=== PATIENT | male | born 1965 | race Caucasian/White ===

== ENCOUNTER 2020-10-11 09:44 | Emergency (ER) | payer BC, OTHER ==
[2020-10-11] MEDS ORDERED: Sodium Chloride 0.9% 2.5 ML Syringe FLUSH PRN (10:01)
[2020-10-11] MEDS ORDERED: Sodium Chloride 0.9% 10 ML Syringe FLUSH PRN (10:01)
--- NOTE | 2020-10-11 10:20 | PCM.SN.2 ---
- Free Text/Narrative Note: EKG done at 9:56 AM sinus rhythm heart rate 93 OH interval 151 QT duration 462. [place] -29. ST elevation in the inferior leads. I see no prior readily available for comparison. Impression this does not show any obvious acute injury or arrhythmia.
--- NOTE | 2020-10-11 10:22 | EDM.PDOC ---
ED HPI GENERAL MEDICAL PROBLEM - General Chief Complaint: Chest Pain Stated Complaint: CHEST PAIN Time Seen by Provider: 10/11/20 10:00 Source of Information: Reports: Patient History Limitations: Reports: No Limitations - History of Present Illness INITIAL COMMENTS - FREE TEXT/NARRATIVE: HISTORY AND PHYSICAL: History of present illness: The patient is a 55-year-old male with a history of hypertension who presents to the emergency room with complaints of right-sided chest pain that extends to his superior and posterior shoulder area for the last 4 days. The patient reports that he normally walks 2 to 3 miles a day but wanted to put a weightlifting routine back into his exercise regimen. He started 1.5 weeks ago lifting 15 pound weights and after 4 days noticed he started having some right shoulder pain. He stopped lifting weights and after about 2 days the pain subsided and he started lifting weights again. After about 2 days of lifting weights he started having the shoulder pain stopped again and has had the right chest/shoulder pain for the last 4 days. He states that when he lay supine he has no pain. Upon lying on his right side he has extreme pain. When he lays on his left side he has mild to no pain. He states upon waking up he has a moderate amount of pain every morning. He has never experienced anything like this previously. The patient has no associated symptoms such as nausea, vomiting, diaphoresis, shortness of breath, or dizziness. Patient denies any fever, chills, headache, change in vision, syncope or near syncope. Denies any cough. Denies any abdominal pain, diarrhea, constipation or dysuria. Has not noted any blood in urine or stool. Patient has been eating and drinking appropriately. In the emergency room the patient is hemodynamically stable with a heart rate of 93. He is slightly hypertensive with a blood pressure of 143/101 patient the patient states he is currently taking hydrochlorothiazide 25 mg daily and he has taken his morning dose. The patient is afebrile with a temperature of 97.2. He has a respiratory rate of 18 and SPO2 of 98%. The patient does state he is a little anxious due to the chest pain. Review of systems: As per history of present illness and below otherwise all systems reviewed and negative. Past medical history: As per history of present illness and as reviewed below otherwise noncontributory. Surgical history: As per history of present illness and as reviewed below otherwise noncontributory. Social history: See social history for further information Family history: As per history of present illness and as reviewed below otherwise noncontributory. Physical exam: General: Well developed and well nourished. Alert and orientated x 3. Nontoxic in appearance and in no acute distress. Vital signs are stable and have been reviewed by me. Nursing notes were reviewed. HEENT: Atraumatic, normocephalic, pupils equal and reactive bilaterally, negative for conjunctival pallor or scleral icterus, mucous membranes moist, TMs normal bilaterally, throat clear, neck supple, nontender, trachea midline. No drooling or trismus noted. No meningeal signs. No hot potato voice noted. Lungs: Clear to auscultation bilaterally. No wheezes, rales, or rhonchi. Chest nontender. Normal work of breathing, no accessory muscles used. Heart: S1S2, regular rate and rhythm without overt murmur, gallops, or rubs. No JVD. No peripheral edema Abdomen: Soft, nondistended, nontender. Normoactive bowel sounds. Negative for masses or costovertebral tenderness. Skin: Intact, warm, dry. No lesions or rashes noted. Hematologic: No petechiae or purpra. Mucosa appropriate color and normal nail bed color and refill. Extremities: Right arm active ROM produced mild pain superior on acromion process. With passive adduction mild pain posterior shoulder. Color and sensation intact. Moves all other extremities per self without difficulty or deficits, negative for cords or calf pain. Neurovascular unremarkable. Neuro: Awake, alert, oriented. Cranial nerves II through XII unremarkable. Cerebellum unremarkable. Motor and sensory unremarkable throughout. Exam nonfocal. Psychiatric: Mood and affect are appropriate. Normal thought process. Answering questions appropriately. Notes: *This patient was seen and evaluated during the 2019 SARS-CoV-2 novel coronavirus pandemic period. Community viral transmission is ongoing at time of this encounter and the emergency department is operating under pandemic response procedures. After discussion and examination the patient is agreeable to blood work, EKG, chest x-ray. The patient's EKG radiates and did not show any acute changes. Chest x-ray radiology reading: IMPRESSION: Unremarkable chest. CBC unremarkable. CMP: Sodium 134, potassium 3.1, chloride 96, carbon dioxide 37.7, ALT 70. I have treated his potassium 3.1 with potassium chloride 40 mEq p.o. The patient's exam is suggestive of muscular skeletal from new introduction of weight lifting. Patient's work-up is also negative for cardiac. Patient's blood pressure was elevated upon arrival to the emergency department and has come down to 120/91. I discussed at length the need for the patient to take his blood pressure daily for 2 weeks and then report to his primary care for possible medication adjustment. The patient presently is on hydrochlorothiazide and potassium. I will prescribe the patient Norflex 100 mg twice daily for 7 days and instructed on taking ibuprofen 800 mg every 8 hours for 4 days. If he continues to have pain he will follow-up with a primary provider at the 2-week timeframe. He will refrain from working out until he is pain-free and when he does resume his workouts he was educated on the need to start with a lesser weight such as 5 pounds in increase his repetitions as opposed to creasing the weight. The patient was placed on the new primary care list for call back. I have talked with the patient about today's findings, in addition to providing specific details for plan of care. Reassessment at the time of disposition demonstrates that the patient is in no acute distress. The patient is stable for discharge, counseling was provided and we discussed in great detail signs and symptoms that would prompt them to return to the Emergency Department. Medication, follow up and supportive care measures were reviewed and discussed. Voices understanding and is agreeable to plan of care. Denies any further questions or concerns at this time. Diagnostics: CBC, CMP, troponin, CXR, EKG Therapeutics: Toradol 30 mg IV potassium chloride 40 mEq Prescription: Norflex 100 mg twice daily for 7 days Impression: Right shoulder pain Plan: 1. You were evaluated today on an emergent basis. Your plaints of right-sided chest, shoulder and upper back pain were evaluated with a chest x-ray which was normal, blood work which showed your potassium low which I have treated with 40 mEq of potassium. Initially her blood pressure was elevated, however, it has returned to a more normal reading. Your bottom number for your diastolic remained at 90 which for your age should be 80 or below. You need to continue your hydrochlorothiazide and take your blood pressure daily for 2 weeks and record your blood pressure and heart rate at different times during the day. To take your blood pressure appropriately you must be sitting with your feet flat on the floor for at least 10 to 15 minutes. No crossing of your legs. Your arm should be resting when you are taking the blood pressure. Please bring the 2 weeks readings to you primary care provider. Due to your low potassium you need to add green leafy vegetables to your diet. Your left shoulder pain is most likely a muscular skeletal issue. I have prescribed Norflex for you to take twice a day for 7 days and for you to take an [id number] Motrin 800 mg every 8 hours for 4 days. At the time of your follow-up with your primary care provider you can talk about whether you need further imaging of your right shoulder. If you are going to continue to lift weights wait until you are pain- free and then start with 5 pound weights increasing the number slowly. Remember to stretch after each exercise. 2. You can alternate Tylenol and ibuprofen as needed for pain and fever management. 3. We encourage you to follow up with your primary care provider and/or recommen ded specialist in the next few days for re-evaluation and further care/management. 4. If your symptoms should worsen, new symptoms develop or any of the signs and symptoms we discussed should arise please return to the emergency room or call 911 (if needed). Definitive disposition and diagnosis as appropriate pending reevaluation and review of above. Right Chest Pain Score (Numeric/FACES): 4 - Related Data Allergies Allergy/AdvReac Type Severity Reaction Status Date / Time No Known Allergies Allergy Verified 10/11/20 10:17 Home Meds: Home Meds Orphenadrine [Norflex] 100 mg PO BID PRN 7 Days #14 tab 10/11/20 [Rx] hydroCHLOROthiazide [Hydrochlorothiazide] 25 mg PO DAILY 10/11/20 [History] Past Medical History Cardiovascular History: Reports: Hypertension Oncologic (Cancer) History: Reports: Other (See Below) Other Oncologic History: testicular cancer 2010 - Infectious Disease History Infectious Disease History: Reports: None - Past Surgical History Other Musculoskeletal Surgeries/Procedures:: neck surgery Social & Family History - Family History Family Medical History: No Pertinent Family History - Caffeine Use Caffeine Use: Reports: None - Recreational Drug Use Recreational Drug Use: No ED ROS GENERAL - Review of Systems Review Of Systems: Comprehensive ROS is negative, except as noted in HPI. ED EXAM, GENERAL - Physical Exam Exam: See Below (See dictation) Course - Vital Signs Last Recorded V/S: Last Vital Signs Temp 97.2 F 10/11/20 09:45 Pulse 87 10/11/20 11:30 Resp 16 10/11/20 11:30 BP 138/93 H 10/11/20 11:30 Pulse Ox 95 10/11/20 11:30 - Orders/Labs/Meds Orders: Active Orders 24 hr Category Date Time Status Saline Lock Insert [OM.PC] Stat Oth 10/11/20 10:01 Ordered Labs: Laboratory Tests 10/11/20 10/11/20 Range/Units 10:25 10:25 WBC 6.07 (4.0-11.0) K/uL RBC 5.69 (4.50-5.90) M/uL Hgb 17.4 H (13.0-17.0) g/dL Hct 49.4 (38.0-50.0) % MCV 86.8 (80.0-98.0) fL MCH 30.6 (27.0-32.0) pg MCHC 35.2 (31.0-37.0) g/dL RDW Std Deviation 41.1 (28.0-62.0) fl RDW Coeff of Yimi 13 (11.0-15.0) % Plt Count 197 (150-400) K/uL MPV 10.30 (7.40-12.00) fL Neut % (Auto) 64.7 (48.0-80.0) % Lymph % (Auto) 18.9 (16.0-40.0) % [place] % (Auto) 14.8 (0.0-15.0) % Eos % (Auto) 1.3 (0.0-7.0) % Baso % (Auto) 0.3 (0.0-1.5) % Neut # (Auto) 3.9 (1.4-5.7) K/uL Lymph # (Auto) 1.2 (0.6-2.4) K/uL [place] # (Auto) 0.9 H (0.0-0.8) K/uL Eos # (Auto) 0.1 (0.0-0.7) K/uL Baso # (Auto) 0.0 (0.0-0.1) K/uL Nucleated RBC % 0.0 /100WBC Nucleated RBCs # 0 K/uL Sodium 134 L (136-148) mmol/L Potassium 3.1 L (3.5-5.1) mmol/L Chloride 96 L (98-107) mmol/L Carbon Dioxide 33.7 H (21.0-32.0) mmol/L BUN 10 (7.0-18.0) mg/dL Creatinine 1.3 (0.8-1.3) mg/dL Est Cr Clr Drug Dosing 59.32 mL/min Estimated GFR (MDRD) 57.1 ml/min Glucose 118 H (74-106) mg/dL Calcium 8.6 (8.5-10.1) mg/dL Total Bilirubin 0.8 (0.2-1.0) mg/dL AST 32 (15-37) IU/L ALT 70 H (14-63) IU/L Alkaline Phosphatase 117 H (46-116) U/L Troponin I < 0.050 (0.000-0.056) ng/mL Total Protein 8.0 (6.4-8.2) g/dL Albumin 3.7 (3.4-5.0) g/dL Globulin 4.3 H (2.6-4.0) g/dL Albumin/Globulin Ratio 0.9 (0.9-1.6) Meds: Medications Discontinued Medications Generic Name Dose Route Start Last Admin Trade Name Freq PRN Reason Stop Dose Admin Ketorolac Tromethamine 30 mg 10/11/20 12:07 10/11/20 12:23 Ketorolac 30 Mg/Ml Sdv IVPUSH 10/11/20 12:08 30 mg ONETIME ONE Administration Potassium Chloride 40 meq 10/11/20 12:06 10/11/20 12:23 Potassium Chloride 20 Meq Tab.Er PO 10/11/20 12:07 40 meq ONETIME ONE Administration Sodium Chloride 10 ml 10/11/20 10:01 10/11/20 10:28 Sodium Chloride 0.9% 10 Ml Syringe FLUSH 10 ml ASDIRECTED PRN Administration Keep Vein Open Sodium Chloride 2.5 ml 10/11/20 10:10/11/20 10:28 Sodium Chloride 0.9% 2.5 Ml Syringe FLUSH 2.5 ml ASDIRECTED PRN Administration Keep Vein Open Departure - Departure Time of Disposition: 12:18 Disposition: Home, Self-Care 01 Condition: Good Clinical Impression: Shoulder pain, right Qualifiers: Chronicity: acute Qualified Code(s): M25.511 - Pain in right shoulder - Discharge Information *PRESCRIPTION DRUG MONITORING PROGRAM REVIEWED*: Not Applicable *COPY OF PRESCRIPTION DRUG MONITORING REPORT IN PATIENT DALJIT: Not Applicable Prescriptions: Orphenadrine [Norflex] 100 mg PO BID PRN 7 Days #14 tab PRN Reason: Pain (Moderate 4-6) Instructions: Shoulder Pain, [id number] Referrals: PCP,None [Primary Care Provider] - Forms: ED Department Discharge Additional Instructions: The following information is given to patients seen in the emergency department who are being discharged to home. This information is to outline your options for follow-up care. We provide all patients seen in our emergency department with a follow-up referral. The need for follow-up, as well as the timing and circumstances, are variable depending upon the specifics of your emergency department visit. If you don't have a primary care physician on staff, we will provide you with a referral. We always advise you to contact your personal physician following an emergency department visit to inform them of the circumstance of the visit and for follow-up with them and/or the need for any referrals to a consulting specialist. The emergency department will also refer you to a specialist when appropriate. This referral assures that you have the opportunity for follow-up care with a specialist. All of these measure are taken in an effort to provide you with optimal care, which includes your follow-up. Under all circumstances we always encourage you to contact your private physician who remains a resource for coordinating your care. When calling for follow-up care, please make the office aware that this follow-up is from your recent emergency room visit. If for any reason you are refused follow-up, please contact the [facility] Emergency Department at and asked to speak to the emergency department charge nurse. [facility] [address] [place] [id number] [facility] [address] [place] [id number] Plan: 1. You were evaluated today on an emergent basis. Your plaints of right-sided chest, shoulder and upper back pain were evaluated with a chest x-ray which was normal, blood work which showed your potassium low which I have treated with 40 mEq of potassium. Initially her blood pressure was elevated, however, it has returned to a more normal reading. Your bottom number for your diastolic rem ained at 90 which for your age should be 80 or below. You need to continue your hydrochlorothiazide and take your blood pressure daily for 2 weeks and record your blood pressure and heart rate at different times during the day. To take your blood pressure appropriately you must be sitting with your feet flat on the floor for at least 10 to 15 minutes. No crossing of your legs. Your arm should be resting when you are taking the blood pressure. Please bring the 2 weeks readings to you primary care provider. Due to your low potassium you need to add green leafy vegetables to your diet. Your left shoulder pain is most likely a muscular skeletal issue. I have prescribed Norflex for you to take twice a day for 7 days and for you to take an [id number] Motrin 800 mg every 8 hours for 4 days. At the time of your follow-up with your primary care provider you can talk about whether you need further imaging of your right shoulder. If you are going to continue to lift weights wait until you are pain-free and then start with 5 pound weights increasing the number slowly. Remember to stretch after each exercise. 2. You can alternate Tylenol and ibuprofen as needed for pain and fever management. 3. We encourage you to follow up with your primary care provider and/or recommended specialist in the next few days for re-evaluation and further care/management. 4. If your symptoms should worsen, new symptoms develop or any of the signs and symptoms we discussed should arise please return to the emergency room or call 911 (if needed). Sepsis Event Note (ED) - Evaluation Sepsis Screening Result: No Definite Risk - Focused Exam Vital Signs: Vital Signs Temp Pulse Resp BP Pulse Ox 10/11/20 11:30 87 16 138/93 H 95 10/11/20 11:00 87 17 138/93 H 95 10/11/20 10:30 88 17 141/104 H 97 10/11/20 09:45 97.2 F 97 143/101 H 99 - My Orders Last 24 Hours: My Active Orders 10/11/20 10:01 Saline Lock Insert [OM.PC] Stat - Assessment/Plan Last 24 Hours: My Active Orders 10/11/20 10:01 Saline Lock Insert [OM.PC] Stat
[2020-10-11 11:05] LABS: BLOOD UREA NITROGEN,BUN 10 mg/dL (7.0-18.0); CARBON DIOXIDE,CO2 33.7 mmol/L (21.0-32.0); CHLORIDE,CL 96 mmol/L (98-107); GLUCOSE RANDOM 118 mg/dL (74-106); POTASSIUM,K 3.1 mmol/L (3.5-5.1); SODIUM,NA 134 mmol/L (136-148)
--- NOTE | 2020-10-11 11:23 | CR ---
INDICATION: Chest pain. TECHNIQUE: Chest 1 view. COMPARISON: None FINDINGS: The heart size and central vascular pattern are within the normal range. The lungs are clear of acute appearing infiltrates. No rib fracture, pneumothorax or pleural effusion is seen. IMPRESSION: Unremarkable chest. Dictated by Ramin Esparza MD @ 10/11/2020 11:22:[address] Ramin Esparza @ Oct 11 2020 11:22AM
[2020-10-11] MEDS ORDERED: Potassium Chloride 20 MEQ Tab.ER PO ONE (12:06)
[2020-10-11] MEDS ORDERED: Ketorolac 30 MG/ML SDV IVPUSH ONE (12:07)
== END 2020-10-11 11:37 | disposition home or self-care (01) ==
LOC: MW.ED 09:44
DX: M25.511 Pain in right shoulder (principal); I10 Essential (primary) hypertension
CPT/HCPCS: 36415; 71045; 80053; 84484; 85025; 93005; 96374; 99285; A9270; J1885; 93010; 99283